=== PATIENT | female | born 1995 | race Caucasian/White ===

== ENCOUNTER 2017-08-20 10:07 | Inpatient (IN) | payer OTHER ==
[~2017-08-20] VITALS: Ht 166.4 cm; Wt 61.5 kg
[~2017-08-20 10:07] MED LIST: PRENAT PO
[2017-08-20 10:20] VITALS: Ht 166.4 cm; Wt 61.5 kg
[2017-08-20 10:21] VITALS: BP 109/64; PULSE 79
[2017-08-20] MEDS ORDERED: LACTATED RINGER'S 1,000 ML IV SCH (10:22)
[2017-08-20] MEDS ORDERED: BUTORPHANOL 2 MG INJ IV PRN ×2 (10:30)
[2017-08-20] MEDS ORDERED: MISOPROSTOL 200 MCG TAB PR PRN (10:30)
[2017-08-20] MEDS ORDERED: OXYTOCIN 30 UNITS/LR 500 ML IV PRN (10:30)
[2017-08-20] MEDS ORDERED: METHYLERGONOVINE 0.2 MG INJ IM PRN (10:30)
[2017-08-20] MEDS ORDERED: CARBOPROST 250 MCG INJ IM PRN (10:30)
[2017-08-20] MEDS ORDERED: LIDOCAINE 1% (MPF) 30 ML INJ INJ PRN (10:30)
[2017-08-20] MEDS ORDERED: LACTATED RINGER'S 1,000 ML IV PRN (10:30)
[2017-08-20] MEDS ORDERED: OXYTOCIN 30 UNITS/LR 500 ML IV SCH ×3 (10:30→12:59)
--- NOTE | 2017-08-20 10:30 | TRIAGE ---
OB Triage Datetime Report Generated by CPN: 08/20/2017 10:30 Datetime: 08/20/2017 10:24 Stage of : OB Triage Datetime: 08/20/2017 10:14 Stage of : OB Triage Assessment Type: Triage Maternal Assessment Level of Consciousness: Fully Conscious DTR's/Clonus: DTRs 2+; No Clonus Headache: Denies Blurred Vision: No Respiratory Effort: Unlabored; Regular Rhythm; Equal Expansion Breath Sounds, Left: Clear and Equal Breath Sounds, Right: Clear and Equal Nausea/Vomiting: Denies RUQ Epigastric Pain: Denies Facial Edema: None Temperature Route: Axillary Fall Risk Assessment History of Falling: (0) No Secondary Diagnosis: (0) No Ambulatory Aid: (0) Bedrest/Nurse Assist IV Therapy: (0) No Gait: (0) Normal/Bedrest/Immobile Mental Status: (0) Oriented to Own Ability Fall Score: 0 Fall Risk Score Definition: No Risk: No action required Labor Evaluation Frequency: X1 Monitor Mode: External Duration (sec)2399: 60 Quality: Moderate Pattern: Normal: <= 5 Contractions in 10 Minutes Resting Tone [place]: Relaxed Heart Rate FHR Baseline Rate: 140 Monitor Mode: External US Variability: Moderate 6-25 bpm Decelerations: None Pain Assessment Pain Scale: 8 Pain Presence: Intermittent Pain Type: Cramping; Contraction Pain Location: Abdomen Pain Goal: 3 Pain Relief Measures: Comfort Measures Vaginal Exam Dilatation (cms): 7.0 Effacement (%): 100 Station: -1 Exam By: S COLLEEN Membrane Status: Bulging Datetime: 08/20/2017 10:13 EGA: 39.1 Datetime: 08/20/2017 10:12 Time of Arrival: 08/20/2017 10:05 Arrived By: Ambulatory Chief Complaint: C/O UC'S EVERY 2 MIN THAT STARTED AT APPROX 0830 TODAY. DENIES BLEEDING OR LEAKIN G OF FLUID Movement: Present Contractions: Regular Contractions: 2 Rupture of Membranes: Denies Vaginal Bleeding: None Vaginal Discharge: Denies Recent Sexual Intercouse: Denies Abdominal Trauma: Not Applicable Patient Complaints: Contractions Time Provider Notified: 08/20/2017 10:25 Provider Notified: MAE Initial Plan: MONITOR, VE
[2017-08-20] MEDS ORDERED: AMPICILLIN 2 GM/NS (PMX) 100 ML ONE (10:56)
[2017-08-20] MEDS ORDERED: AMPICILLIN 2 GM/NS (PMX) 100 ML IV ONE (11:00)
[2017-08-20 11:24] LABS: BASOPHILS % 0.4 % (0.0-2.0); EOSINOPHILS # 0.1 10^3/ul (0.0-0.5); EOSINOPHILS % 0.9 % (0.0-7.0); HEMATOCRIT 32.3 % (37.0-47.0); HEMOGLOBIN 10.5 g/dl (12.0-16.0); LYMPHOCYTES # 2.5 10^3/ul (0.8-2.9); LYMPHOCYTES % 22.9 % (15.0-51.0); MEAN CORPUSCULAR HGB CONC 32.5 g/dl (32.0-37.0); MEAN PLATELET VOLUME 10.1 fl (7.4-10.4); MONOCYTE # 0.6 10^3/ul (0.3-0.9); MONOCYTES % 5.7 % (0.0-11.0); NEUTROPHIL # 7.4 10^3/ul (1.6-7.5); NEUTROPHILS % 69.6 % (39.0-77.0); PLATELET COUNT 355 10^3/UL (140-415); RED BLOOD COUNT 4.04 10^6/ul (4.20-5.40); RED CELL DISTRIBUTION WIDTH 14.4 % (11.5-14.5); WHITE BLOOD COUNT 10.7 10^3/ul (4.8-10.8)
--- NOTE | 2017-08-20 11:39 | LDN ---
Date/Time of Note Date/Time of Note DATE: 08/20/17 TIME: 11:32 Delivery Summary Normal spontaneous vaginal delivery of a baby girl from OA position was delivered without any difficultly the rest the baby's body followed cord clamped after stopped pulsation placenta spontaneous expulsion inspected complete, peritoneal vaginal inspection no laceration estimated blood loss 200 mL Weeks of Gestation 39 week Placenta Delivered: Spontaneously Meconium: none Episiotomy: No Anesthesia type: None Estimated blood loss: 200 Sponge & Needle done & correct: Yes All needle counts correct: Yes Any foreign bodies felt in the: No Problems: Infant Delivery Information Apgars 1 Minute: 9 5 Minute: 9 Suctioning Nose & mouth suctioned at ephraim: Yes Umbilical Cord Umbilical cord with: 3 Vessels Cord presentations: nuchal cord Nuchal cord present X: 1 Cord Blood was obtained: Yes JANINE WALL MD Aug 20, 2017 11:39
[2017-08-20 11:42] LABS: INR 1.02; PROTIME 13.4 Sec (12.2-14.2)
[2017-08-20 11:43] LABS: PARTIAL THROMBOPLASTIN TIME 28.5 Sec (25.0-35.0)
--- NOTE | 2017-08-20 11:45 | HP ---
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 Rubella: immune RPR/VDRL: Negative GBS Status: Negative HBsAG: Negative OB Admission Exam Vital Signs Vital Signs Vital Signs Date Time Temp Pulse Resp B/P Pulse Ox O2 Delivery O2 Flow Rate FiO2 08/20/17 10:21 98.3 79 109/64 Physical Exam Heart: Rhythm Normal Lungs: Clear, Equal Abdomen: WNL Extremities: Normal Reflexes: Normal Cervical Dilatation: 7cm Effacement: 100% Station: -1 Membranes: Intact Heart Rate: 130's Accelerations: Accelerations Present Decelerations: No Decelerations Varibility: Moderate Contractions on Admission: < 5 Minutes Apart Intensity: Firm Last 72 hours Lab Results CBC & BMP 08/20/17 10:40 OB Assessment/Plan Reason for admission: other (Active labor) Other plan: 21 years old EDC 26 August admitted in active labor on admission pelvic examination cervix 7 cm dilated 100% effaced vertex at -1 station contraction every 3-5 minutes heart category 1 JANINE WALL MD Aug 20, 2017 11:45
[2017-08-20 12:08] LABS: BARBITURATES Negative (NEGATIVE); BENZODIAZEPINES Negative (NEGATIVE); CANNABINOIDS Negative (NEGATIVE); COCAINE Negative (NEGATIVE); OPIATES Negative (NEGATIVE)
[2017-08-20] MEDS ORDERED: WITCH HAZEL/GLYCERIN PAD PR PRN (13:00)
[2017-08-20] MEDS ORDERED: ACETAMINOPHEN 325 MG TAB PO PRN (13:00)
[2017-08-20] MEDS ORDERED: HYDROCODONE/APAP (5/325) TAB PO PRN ×2 (13:00)
[2017-08-20] MEDS ORDERED: DIBUCAINE 1% 30 GM OINT PR PRN (13:00)
[2017-08-20] MEDS ORDERED: LANOLIN 7 GM TUBE TOP PRN (13:00)
[2017-08-20] MEDS ORDERED: BENZOCAINE 20% 56 ML SPRAY TOP PRN (13:00)
[2017-08-20] MEDS ORDERED: OXYCODONE/ASPIRIN (4.88/325) TAB PO PRN ×2 (13:00)
[2017-08-20] MEDS ORDERED: ONDANSETRON 4 MG INJ IV PRN (13:00)
[2017-08-20 13:15] VITALS: BP 101/63; PULSE 72; RESP 18
[2017-08-20] MEDS ORDERED: AMPICILLIN 1 GM/NS (PMX) 50 ML IV SCH (15:00)
[2017-08-20 16:20] VITALS: BP 113/68; PULSE 69; RESP 18
[2017-08-20] MEDS: IBUPROFEN 600 MG TAB PO SCH (18:21)
[2017-08-20 19:35] VITALS: BP 119/64; PULSE 65; RESP 18
[2017-08-20] MEDS: SENNA/DOCUSATE NA (8.6MG/50MG) TAB PO SCH (21:08)
[2017-08-21] VITALS: BP_SYST 106; PULSE 78; RESP 18
[2017-08-21] MEDS: IBUPROFEN 600 MG TAB PO SCH ×5 (00:05→23:36)
[2017-08-21 04:40] VITALS: BP 99/56; PULSE 75; RESP 18
[2017-08-21 07:30] VITALS: BP 105/59; PULSE 77; RESP 18
[2017-08-21 07:39] LABS: BASOPHILS % 0.3 % (0.0-2.0); EOSINOPHILS # 0.1 10^3/ul (0.0-0.5); EOSINOPHILS % 0.8 % (0.0-7.0); HEMATOCRIT 30.1 % (37.0-47.0); HEMOGLOBIN 9.6 g/dl (12.0-16.0); LYMPHOCYTES # 2.6 10^3/ul (0.8-2.9); LYMPHOCYTES % 17.5 % (15.0-51.0); MEAN CORPUSCULAR HEMOGLOBIN 25.9 pg (29.0-33.0); MEAN CORPUSCULAR HGB CONC 31.9 g/dl (32.0-37.0); MEAN CORPUSCULAR VOLUME 81.1 fl (82.0-101.0); MEAN PLATELET VOLUME 10.3 fl (7.4-10.4); MONOCYTES % 6.9 % (0.0-11.0); NEUTROPHIL # 10.8 10^3/ul (1.6-7.5); PLATELET COUNT 333 10^3/UL (140-415); RED BLOOD COUNT 3.71 10^6/ul (4.20-5.40); RED CELL DISTRIBUTION WIDTH 14.4 % (11.5-14.5); WHITE BLOOD COUNT 14.6 10^3/ul (4.8-10.8)
[2017-08-21] MEDS: SENNA/DOCUSATE NA (8.6MG/50MG) TAB PO SCH ×2 (08:45→21:19)
--- NOTE | 2017-08-21 12:23 | QN ---
Documentation Comment post normal vag delivery day 1 afebrile vss, uterus firm ,lochia normal ext. normal JANINE WALL MD Aug 21, 2017 12:23
[2017-08-21 16:12] VITALS: BP 110/60; PULSE 61; RESP 18
[2017-08-21 19:55] VITALS: BP 112/65; PULSE 66; RESP 18
[2017-08-22 04:00] VITALS: BP 98/56; PULSE 67; RESP 18
[2017-08-22] MEDS: IBUPROFEN 600 MG TAB PO SCH ×2 (05:30→11:24)
[2017-08-22 08:30] VITALS: BP 116/70; PULSE 65
[2017-08-22] MEDS ORDERED: MEASLES,MUMPS,RUBELLA VACCINE INJ SC* ONE (09:00)
[2017-08-22] MEDS: SENNA/DOCUSATE NA (8.6MG/50MG) TAB PO SCH (09:00)
--- NOTE | 2017-08-22 10:57 | PD.PPDC ---
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
--- NOTE | 2017-08-22 10:59 | DS ---
Date/Time of Note Date/Time of Note DATE: 08/22/17 TIME: 10:58 Discharge Summary Admission/Discharge Info Admit Date/Time Aug 20, 2017 at 10:24 Discharge Date/Time June 22, 2017 at 1230 Discharge Diagnosis Post normal vaginal delivery day 2 Patient Condition: Good Procedures Normal vaginal delivery Hx of Present Illness Term in labor Hospital Course Satisfactory uneventful Home Meds Active Scripts Multivit/Min/Fol Ac/Iron/Pren* ( S*) 1 Tab Tab, 1 TAB PO DAILY for 30 Days, TAB Prov:MICA FITCH NP 02/11/16 Follow-up Plan instructions given recommended to make appointment to be seen at the clinic in 2 weeks Primary Care Provider Manuela Spring Time spent on discharge: < 30 minutes JANINE WALL MD Aug 22, 2017 10:59
== END 2017-08-22 14:50 | disposition home or self-care (01) | DRG 775 ==
LOC: OBT 10:07 → L-D 10:07 → OBT 10:24 → L-D 10:28 → PP1 13:10
PROVIDERS: ADMIT Obstetrics & Gynecology; ATTEND Obstetrics & Gynecology
PROC: 10E0XZZ Delivery of Products of Conception, External Approach (ICD-10-PCS; principal; 2017-08-20)
DX: O80 Encounter for full-term uncomplicated delivery (principal); Z37.0 Single live birth; Z3A.39 39 weeks gestation of pregnancy
CPT/HCPCS: 80307; 85025; 85610; 85730; 86592; 86706; 86900; 86901; G0463; J0290; J2590; J7120

== ENCOUNTER 2018-12-02 01:04 | Emergency (ER) | payer OTHER ==
[~2018-12-02] VITALS: Ht 167.6 cm; Wt 53.8 kg
[2018-12-02 01:07] VITALS: Ht 167.6 cm; Wt 53.8 kg
--- NOTE | 2018-12-02 01:45 | ERD ---
ER Documentation Chief Complaint Chief Complaint R rib pin after coughing x 2 weeks HPI This is a 23-year-old female presents emergency department with complaints of right-sided rib/chest pain with coughing for about 2 weeks. Also added she has productive cough in the last 3 days. Also stated that she is spitting out yellowish sputum whenever she coughs. LMP: Stated that she is on it. A0. Denies headache, head injury, loss of consciousness, dizziness, neck pain, neck stiffness, throat pain, difficulty swallowing, difficulty breathing lying flat, shoulder pain, back pain, abdominal pain, nausea, vomiting, constipation, diarrhea, urinary symptoms, or possibility being , loss of bowel and bladder control, trauma, injury, falls, difficulty walking due to pain, numbness or tingling sensation, calf pain, recent travel, recent major surgery in the last 3 weeks, calf pain, recent long travel, recent exposure to any illness, recent antibiotic use in the last 3 months, fever, chills, seizures. Past medical history: Denies. Denies family history of heart attack before the age of 50. Surgical history: Denies. Social: Denies smoking, use of alcoholic beverages, use of illegal drugs. ROS All systems reviewed and are negative except as per history of present illness. Medications Home Meds Active Scripts Ibuprofen* (Motrin*) 600 Mg Tab, 600 MG PO Q6H PRN for PAIN AND OR ELEVATED TEMP, #30 TAB Prov:ELOISE GARCIA F 12/02/18 Guaifenesin-Dextromethorphan* (Robafen* DM) 100MG/10MG/5ML Liquid, 5 ML PO Q6H PRN for COUGH, #60 ML Prov:ELOISE GARCIA 12/02/18 Prednisone* (Prednisone*) 20 Mg Tab, 40 MG PO DAILY for 5 Days, TAB Prov:ELOISE GARCIA F 12/02/18 Azithromycin* (Zithromax*) 250 Mg Tablet, 250 MG PO .ISIDRO DIRECTED, #6 TAB TAKE 500 MG (2 TABS) THE FIRST DAY THEN 250 MG (1 TAB) DAYS 2-5 Prov:ELOISE GARCIA F 12/02/18 Multivit/Min/Fol Ac/Iron/Pren* ( S*) 1 Tab Tab, 1 TAB PO DAILY for 30 Days, TAB Prov:MICA FITCH I. 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 02/11/16 Allergies Allergies: Coded Allergies: No Known Allergy (Unverified , 08/20/17) PMhx/Soc History of Surgery: No Anesthesia Reaction: No Hx Neurological Disorder: No Hx Respiratory Disorders: No Hx Cardiac Disorders: No Hx Psychiatric Problems: No Hx Miscellaneous Medical Probl: No Hx Alcohol Use: No Hx Substance Use: No Hx Tobacco Use: No Physical Exam Vitals Vital Signs Date Temp Pulse Resp B/P (MAP) Pulse Ox O2 O2 Flow FiO2 Time Delivery Rate 12/02/18 98.7 93 18 105/60 98 Room Air 03:17 (75) 12/02/18 98.3 100 16 105/60 97 01:07 (75) Physical Exam Const: No acute distress Head: Atraumatic Eyes: Normal Conjunctiva ENT: Normal External Ears, Nose and Mouth. Neck: Full range of motion. No meningismus. Resp: Clear to auscultation bilaterally. Examined with female r d engineer, Kellee BURDEN. Chest is symmetrical. No crepitus. No vesicular lesions. No signs of trauma. Cardio: Regular rate and rhythm, no murmurs Abd: Soft, non tender, non distended. Normal bowel sounds Skin: No petechiae or rashes Back: No midline or flank tenderness Ext: No cyanosis, or edema Neur: Awake and alert. No neurological deficits. Psych: Normal Mood and Affect Results 24 hrs Laboratory Tests Test 12/02/18 01:52 POC Beta HCG, Qualitative NEGATIVE Current Medications Medications Dose Sig/Gagandeep Start Time Status Last (Trade) Ordered Route PRN Stop Time Admin Dose Reason Admin Ketorolac 30 mg ONCE STAT 12/02/18 DC 12/02/18 Tromethamine IM 01:59 02:19 (Toradol) 12/02/18 02:00 Procedures/MDM Diagnostic tests: POC urine : Negative. Chest x-ray: No evidence of active cardiopulmonary disease. Treatment: Toradol IM. Re-evaluation: Denies pain. Respirations even and unlabored. Lung sounds are clear to auscultation. Not in acute respiratory distress. Stated that she feels much better this time and that she is ready to go home. Differential diagnosis I have low suspicion for acute myocardial infarction, acute coronary syndrome, pericarditis, pneumonia, sepsis, pneumothorax, hemothorax. Final diagnosis: Bronchitis. Chest wall pain. Costochondritis. Prescription: Motrin. Azithromycin. Prednisone. Robafen. Follow-up with PCP in the next 24-48 hours. Come back here in the emergency department for any new symptoms or any worsening symptoms. All questions and concerns were answered. Patient and family members verbalized understanding and agreed with plan of care. Hemodynamically stable on discharge. Departure Diagnosis: Primary Impression: Bronchitis Condition: Stable Additional Instructions: Follow-up with PCP in the next 24-48 hours. Come back here in the emergency department for any new symptoms or any worsening symptoms. ELOISE GARCIA Dec 02, 2018 01:45
[2018-12-02] MEDS ORDERED: KETOROLAC 30 MG INJ IM STA (01:59)
[2018-12-02] MEDS ORDERED: GUAI-227 PO (02:52)
[2018-12-02] MEDS ORDERED: IBUP-1542 PO (02:52)
[2018-12-02] MEDS ORDERED: AZIT250T PO (02:52)
[2018-12-02] MEDS ORDERED: PRED20TA PO (02:52)
[2018-12-02 03:17] VITALS: BP 105/60; PULSE 93; RESP 18
== END 2018-12-02 03:20 | disposition home or self-care (01) ==
LOC: FTE 01:04
DX: J40 Bronchitis, not specified as acute or chronic (principal); R40.2142 Coma scale, eyes open, spontaneous, at arrival to emergency department; R40.2362 Coma scale, best motor response, obeys commands, at arrival to emergency department; R40.2252 Coma scale, best verbal response, oriented, at arrival to emergency department
CPT/HCPCS: 71046; 81025; J1885; 96372

== ENCOUNTER 2018-12-07 01:30 | Emergency (ER) | payer OTHER ==
[~2018-12-07] VITALS: Ht 167.6 cm; Wt 56.2 kg
[~2018-12-07 01:30] MED LIST changes: +AZIT250T PO; +GUAI-227 PO; +IBUP-1542 PO; +PRED20TA PO
[2018-12-07 01:44] VITALS: Ht 167.6 cm; Wt 56.2 kg
[2018-12-07] MEDS ORDERED: KETOROLAC 60 MG INJ IM STA (02:18)
[2018-12-07] MEDS ORDERED: TRAM50TA2 PO (02:21)
[2018-12-07] MEDS ORDERED: IBUP800T48 PO (02:21)
[2018-12-07 02:27] VITALS: PULSE 102; RESP 18
--- NOTE | 2018-12-07 02:28 | ERD ---
ER Documentation Chief Complaint Chief Complaint RIGHT RIB PAIN HPI This is a 23-year-old female with a nonsignificant past medical history presents ED with complaints of right rib pain. Patient states that she has had this rib pain for over a week and is been constant. Patient states that she was seen here 4 days ago and was diagnosed with bronchitis. Patient states that her symptoms of bronchitis have resolved. Patient states that the right rib pain is sometimes worsened by sneezing and movement. Denies chest pain, shortness of breath, trouble breathing, sputum production, cough, congestion, nausea, vomiting, diarrhea, constipation or other symptoms. No known drug allergies. ROS All systems reviewed and are negative except as per history of present illness. Medications Home Meds Active Scripts Ibuprofen* (Motrin*) 800 Mg Tab, 800 MG PO Q6, #30 TAB Prov:MADAHV SCOTT PA-C 12/07/18 Tramadol HCl (Tramadol HCl) 50 Mg Tablet, 50 MG PO Q6 PRN for PAIN, #6 TAB Prov:MADHAV SCOTT PA-C 12/07/18 Ibuprofen* (Motrin*) 600 Mg Tab, 600 MG PO Q6H PRN for PAIN AND OR ELEVATED TEMP, #30 TAB Prov:ELOISE GARCIA 12/02/18 Guaifenesin-Dextromethorphan* (Robafen* DM) 100MG/10MG/5ML Liquid, 5 ML PO Q6H PRN for COUGH, #60 ML Prov:ELOISE GARCIA 12/02/18 Prednisone* (Prednisone*) 20 Mg Tab, 40 MG PO DAILY for 5 Days, TAB Prov:ELOISE GARCIA 12/02/18 Azithromycin* (Zithromax*) 250 Mg Tablet, 250 MG PO .ZPACK DIRECTED, #6 TAB TAKE 500 MG (2 TABS) THE FIRST DAY THEN 250 MG (1 TAB) DAYS 2-5 Prov:ELOISE GARCIA 12/02/18 Multivit/Min/Fol Ac/Iron/Pren* ( S*) 1 Tab Tab, 1 TAB PO DAILY for 30 Days, TAB Prov:MICA FITCH NP 02/11/16 Allergies Allergies: Coded Allergies: No Known Allergy (Unverified , 12/07/18) PMhx/Soc Medical and Surgical Hx: pt denies Medical Hx, pt denies Surgical Hx History of Surgery: No Anesthesia Reaction: No Hx Neurological Disorder: No Hx Respiratory Disorders: No Hx Cardiac Disorders: No Hx Psychiatric Problems: No Hx Miscellaneous Medical Probl: No Hx Alcohol Use: Yes (occassionally) Hx Substance Use: No Hx Tobacco Use: No Smoking Status: Never smoker FmHx Family History: No diabetes Physical Exam Vitals Vital Signs Date Temp Pulse Resp B/P (MAP) Pulse Ox O2 O2 Flow FiO2 Time Delivery Rate 12/07/18 102 18 96 Room Air 02:27 12/07/18 98.6 61 16 111/67 98 01:44 (82) Physical Exam Physical Exam Vitals signs: Reviewed by me. General: Well developed, well nourished, in no acute distress. Patient is awake and alert. Head: Normocephalic, atraumatic. Eyes: Normal conjunctiva, Pupils PERRLA, EOM intact grossly ENT: Pharynx is clear, Moist mucous membranes, external ears, nose and mouth normal Neck: Supple, no masses, lymphadenopathy or JVD Respiratory: Clear to auscultation bilaterally with no wheezing, rhonchi, rales, no distress Cardiovascular: RRR, no murmurs, rubs, or gallops Neurologic: Alert and oriented, moving all extremities, normal speech, no focal weakness, no cerebellar signs. Normal mentation Skin: warm and dry, No rash Psych: Normal mood Results 24 hrs Current Medications Medications Dose Sig/Gagandeep Start Time Status Last (Trade) Ordered Route PRN Stop Time Admin Dose Reason Admin Ketorolac 60 mg ONCE STAT 12/07/18 DC 12/07/18 Tromethamine IM 02:18 02:28 (Toradol) 12/07/18 02:19 Procedures/MDM ER COURSE: The patient was stable throughout ED course. I kept the patient and/or family informed of laboratory and diagnostic imaging results throughout the emergency room course. The patient was promptly evaluated and a treatment plan was devised based on H&P and other data. This plan was discussed with the patient who agreed and had no further questions or concerns prior to discharge. MEDICAL DECISION MAKING: This is a 23-year-old female presents ED with right rib pain. Given the patient recently had a bronchitis this is likely costochondritis. . Symptoms at this time most consistent with costochondritis. PERC negative. Wells Criteria negative. I have low suspicion for PE, abscess, pleural effusion, pneumothorax, acute coronary syndrome. I do not feel further workup or imaging is required at this time. Pt is afebrile and otherwise well- appearing and vital signs are stable. Pt is not tachycardic and oxygen saturation is above 96%. No evidence of acute myocardial infarction, pneumothorax, pneumonia, cardiac tamponade, Hqwdk-Kywprmxil-Clhdh Syndrome, Brugada Syndrome, pulmonary embolism, AAA, aortic dissection, thoracic aortic dissection, endocarditis, myocarditis, pericarditis, cocaine-related ischemia, Boerhaave's syndrome, cardiac dysrhythmias,meningitis, intracranial bleed, seizure, stroke, TIA or other emergent conditions. At this time the patient is stable for discharge and outpatient management. Sheila ent should follow up with their PCP in the next 1-2 days. They may return to the emergency department sooner for any persistent or worsening of symptoms. Patient understood and agreed with the plan. DISPOSITION PLAN: We discussed follow up with the patient's primary care doctor within 24 to 48 hours. Patient counseled regarding my diagnostic impression and care plan. Prior to discharge all questions answered. Pt agrees with treatment plan and understands strict return precautions. Precautionary instructions provided including instructions to return to the ER if not improving or for any worsening or changing symptoms or concerns. ExitCare instructions provided. Prior to discharge, patients vital signs have been reviewed SPECIALIST FOLLOW UP RECOMMENDED: None Patient has been advised to follow up with primary care in 1-2 days. Disclaimer: Inadvertent spelling and grammatical errors are likely due to EHR/dictation software use and do not reflect on the overall quality of patient care. Also, please note that the electronic time recorded on this note does not necessarily reflect the actual time of the patient encounter. Departure Diagnosis: Primary Impression: Rib pain Condition: Stable Patient Instructions: Chest Wall Pain, Costochondritis Referrals: [facility] (PCP) Additional Instructions: Patient advised to return to the ED immediately for new or worsening symptoms. Patient advised to follow up with primary care provider in the next 24-48 hours. Patient verbalized understanding and agrees with treatment plan and course of action. If patient has no primary care they may follow up with one of the community clinics listed on the following page or one of the options listed below [facility] + [address] [address] or [facility] [address] [place] [address] or [facility] [address] [place] [address] MADHAV SCOTT PA-C Dec 07, 2018 02:28
== END 2018-12-07 02:39 | disposition home or self-care (01) ==
LOC: FTE 01:30
DX: R07.81 Pleurodynia (principal)
CPT/HCPCS: 96372; J1885; Z7502